=== PATIENT | male | born 1945 | race Caucasian/White ===

== ENCOUNTER 2019-03-19 13:50 | Emergency (ER) | payer MEDICARE ==
[2019-03-19 13:50] VITALS: BP 145/80
[2019-03-19] MEDS ORDERED: NS IV 1000 ML 1,000 ML IV SCH (14:14)
[2019-03-19 14:31] LABS: HEMATOCRIT 40 % (40-54); HEMOGLOBIN 13.5 G/DL (13.3-17.7); MEAN CORPUSCULAR HEMOGLOBIN 32 PG (25-34); MEAN CORPUSCULAR HGB CONC 33 G/DL (32-36); MEAN CORPUSCULAR VOLUME 96 FL (80-99); PLATELET COUNT 128 10^3/uL (130-400); RED CELL DISTRIBUTION WIDTH 12.3 % (10.0-14.5); WHITE BLOOD COUNT 5.3 10^3/uL (4.3-11.0)
[2019-03-19 14:32] LABS: BASOPHILS % (AUTO) 1 % (0-10); EOSINOPHILS # (AUTO) 0.1 10^3/uL (0.0-0.3); EOSINOPHILS % (AUTO) 1 % (0-10); LYMPHOCYTES # (AUTO) 1.9 X 10^3 (1.0-4.0); LYMPHOCYTES % (AUTO) 36 % (12-44); MEAN PLATELET VOLUME 10.6 FL (7.4-10.4); MONOCYTES # (AUTO) 0.5 X 10^3 (0.0-1.0); MONOCYTES % (AUTO) 9 % (0-12); NEUTROPHILS # (AUTO) 2.7 X 10^3 (1.8-7.8); NEUTROPHILS % (AUTO) 52 % (42-75)
[2019-03-19 14:34] LABS: INR 1.2 (0.8-1.4); PROTHROMBIN TIME PATIENT 15.3 SEC (12.2-14.7)
[2019-03-19 14:46] LABS: ALANINE AMINOTRANSFERASE 36 U/L (0-55); ALKALINE PHOSPHATASE 98 U/L (40-136); BILIRUBIN,TOTAL 0.4 MG/DL (0.1-1.0); BUN/CREATININE RATIO 20; CALCIUM 9.9 MG/DL (8.5-10.1); CARBON DIOXIDE 22 MMOL/L (21-32); CHLORIDE 102 MMOL/L (98-107); CREATININE SERUM 1.52 MG/DL (0.60-1.30); GFR ESTIMATED 45; GLUCOSE 214 MG/DL (70-105); POTASSIUM 4.4 MMOL/L (3.6-5.0); SODIUM 136 MMOL/L (135-145)
[2019-03-19 14:47] LABS: ALBUMIN 4.3 GM/DL (3.2-4.5); TOTAL PROTEIN 7.6 GM/DL (6.4-8.2)
--- NOTE | 2019-03-19 14:58 | Diagnostic Imaging Report ---
PROCEDURE: CT head without contrast. TECHNIQUE: Multiple contiguous axial images were obtained through the brain without the use of intravenous contrast. Auto Exposure Controls were utilized during the CT exam to meet ALARA standards for radiation dose reduction. INDICATION: Dizziness and chest pain. COMPARISON: No prior studies are available for comparison. FINDINGS: Ventricles and sulci are prominent consistent with cerebral atrophy. There is mild periventricular hypodensity noted consistent with chronic microvascular ischemia. No sulcal effacement or midline shift is detected. No acute intra-axial or extra-axial hemorrhage is detected. Cisterns are patent. IMPRESSION: Chronic changes. No acute intracranial process is detected. Dictated by: Dictated on workstation # [id number]
--- NOTE | 2019-03-19 14:58 | Diagnostic Imaging Report ---
INDICATION: Dizziness. Chest pain. COMPARISON: None. FINDINGS: Single frontal view of the chest demonstrates normal heart size and pulmonary vascularity. Evaluation of the lung orozco shows moderate basilar effusion. There is no large effusion on the left. No pneumothorax is seen on either side. The visualized osseous structures show no acute abnormalities. IMPRESSION: 1. Small left basilar effusion. Dictated by: Dictated on workstation # [id number]
[2019-03-19 15:36] LABS: BILIRUBIN,URINE NEGATIVE (NEGATIVE); CLARITY,URINE CLEAR; COLOR,URINE YELLOW; GLUCOSE, URINE (UA) TRACE (NEGATIVE); KETONES,URINE NEGATIVE (NEGATIVE); LEUKOCYTE ESTERASE ,URINE NEGATIVE (NEGATIVE); NITRITE,URINE NEGATIVE (NEGATIVE); PH,URINE 6.5 (5-9); PROTEIN,URINE NEGATIVE (NEGATIVE); SQUAMOUS EPITHELIAL CELL,UR 0-2 /HPF; UROBILINOGEN,URINE 0.2 MG/DL (NORMAL)
[2019-03-19 15:37] LABS: HYALINE CASTS, URINE 0-2 /LPF
--- NOTE | 2019-03-19 16:20 | ED Cardiac General ---
History of Present Illness General Chief Complaint: Chest Pain Stated Complaint: RT ARM PAIN; DIZZINESS; SHAKINESS History of Present Illness Date Seen by Provider: Mar 19, 2019 Time Seen by Provider: 14:00 Initial Comments The patient is a 73-year-old male with a history of hypertension, hyperlipidemia and diabetes. He presents with concern for acute onset of lightheadedness and shakiness and transient difficulty with speech articulation, all with onset about 30 minutes prior to arrival. Patient was outside sweeping his deck when he suddenly had onset of all of the above symptoms. He states he became very shaky and lightheadedness and felt like he would faint but did not. He was able to get inside the house and tried to talk to his but he states that he was stuttering and unable to get his words out. This persisted for just "a few minutes" before completely resolving. At this time the patient feels well and denies any symptoms of any kind. He similarly felt well before onset of symptoms. Contrary to the triage note, patient did not have any arm pain or chest pain. No associated fevers, nausea or vomiting, cold sweats or chills, shortness of breath, abdominal pain, flank pain, back pain, dysuria or hematuria, changes in bowel habits. Patient is alert and oriented 4 and pleasantly and appropriately interactive and in absolutely no distress upon initial evaluation in the emergency department. Vital signs are appropriate. Allergies and Home Medications Allergies Coded Allergies: No Known Drug Allergies (Unverified , 03/19/19) Patient Home Medication List Home Medication List Reviewed: Yes Review of Systems Review of Systems Constitutional: see HPI All Other Systems Reviewed Negative Unless Noted: Yes (Negative excepted noted.) Past Ulvrveo-Fqvsou-Ietwzv Hx Past Med/Social Hx: Reviewed Nursing Past Med/Soc Hx Patient Social History Alcohol Use: Denies Use Recreational Drug Use: Yes 2nd Hand Smoke Exposure: No Recent Hopitalizations: No Physical Abuse: No Sexual Abuse: No Mistreated: No Fear: No Seasonal Allergies Seasonal Allergies: No Past Medical History Surgeries: No Respiratory: No Cardiac: Yes Heart Murmur, High Cholesterol, Hypertension Neurological: No Genitourinary: No Gastrointestinal: No Musculoskeletal: No Endocrine: Yes Diabetes, Non-Insulin dep HEENT: No Cancer: No Psychosocial: No Integumentary: No Blood Disorders: No Adverse Reaction/Blood Tranf: No Family Medical History Reviewed Nursing Family Hx Physical Exam Vital Signs Capillary Refill : Height, Weight, BMI Height: '" Weight: lbs. oz. kg; BMI Method: General Appearance: No Apparent Distress Other comments This is an elderly male appearing nontoxic and in no acute distress. Head is normocephalic and atraumatic. Neck is supple and nontender. Oropharynx is moist. Lungs are clear to auscultation at all stations. There is a normal S1 and S2 without rubs or gallops and capillary refill is appropriate, less than 2 seconds globally. Abdomen is soft, nontender and nondistended. Skin is warm and dry without cyanosis, clubbing or edema. Psychiatrically, the patient doesn't straights appropriate mood and affect and is alert. From a neurologic standpoint, cranial nerves II through XII are intact and there are no lateralizing deficits noted. Speech is normal. Language is normal. Coordination is normal. There is no dysmetria with finger to nose bilaterally. Strength is 5 out of 5 at all joints of bilateral upper and lower extremity. Sensation is intact to light touch in bilateral upper and lower extremity. Patient ambulatory with a narrow, steady gait in the emergency department. He is alert and oriented 4. Progress/Results/Core Measures Results/Orders Lab Results Laboratory Tests Test 03/19/19 13:55 03/19/19 15:25 Range/Units White Blood Count 5.3 4.3-11.0 10^3/uL Red Blood Count 4.20 L 4.35-5.85 10^6/uL Hemoglobin 13.5 13.3-17.7 G/DL Hematocrit 40 40-54 % Mean Corpuscular Volume 96 80-99 FL Mean Corpuscular Hemoglobin 32 25-34 PG Mean Corpuscular Hemoglobin Concent 33 32-36 G/DL Red Cell Distribution Width 12.3 10.0-14.5 % Platelet Count 128 L 130-400 10^3/uL Mean Platelet Volume 10.6 H 7.4-10.4 FL Neutrophils (%) (Auto) 52 42-75 % Lymphocytes (%) (Auto) 36 12-44 % Monocytes (%) (Auto) 9 0-12 % Eosinophils (%) (Auto) 1 0-10 % Basophils (%) (Auto) 1 0-10 % Neutrophils # (Auto) 2.7 1.8-7.8 X 10^3 Lymphocytes # (Auto) 1.9 1.0-4.0 X 10^3 Monocytes # (Auto) 0.5 0.0-1.0 X 10^3 Eosinophils # (Auto) 0.1 0.0-0.3 10^3/uL Basophils # (Auto) 0.0 0.0-0.1 10^3/uL Prothrombin Time 15.3 H 12.2-14.7 SEC INR Comment 1.2 0.8-1.4 Activated Partial Thromboplast Time 27 24-35 SEC Sodium Level 136 135-145 MMOL/L Potassium Level 4.4 3.6-5.0 MMOL/L Chloride Level 102 98-107 MMOL/L Carbon Dioxide Level 22 21-32 MMOL/L Anion Gap 12 5-14 MMOL/L Blood Urea Nitrogen 31 H 7-18 MG/DL Creatinine 1.52 H 0.60-1.30 MG/DL Estimat Glomerular Filtration Rate 45 BUN/Creatinine Ratio 20 Glucose Level 214 H 70-105 MG/DL Calcium Level 9.9 8.5-10.1 MG/DL Corrected Calcium 9.7 8.5-10.1 MG/DL Total Bilirubin 0.4 0.1-1.0 MG/DL Aspartate Amino Transf (AST/SGOT) 31 5-34 U/L Alanine Aminotransferase (ALT/SGPT) 36 0-55 U/L Alkaline Phosphatase 98 40-136 U/L Troponin I < 0.30 <0.30 NG/ML Pro-B-Type Natriuretic Peptide 54.2 <75.0 PG/ML Total Protein 7.6 6.4-8.2 GM/DL Albumin 4.3 3.2-4.5 GM/DL Urine Color YELLOW Urine Clarity CLEAR Urine pH 6.5 5-9 Urine Specific [place] 1.010 L 1.016-1.022 Urine Protein NEGATIVE NEGATIVE Urine Glucose (UA) TRACE H NEGATIVE Urine Ketones NEGATIVE NEGATIVE Urine Nitrite NEGATIVE NEGATIVE Urine Bilirubin NEGATIVE NEGATIVE Urine Urobilinogen 0.2 NORMAL MG/DL Urine Leukocyte Esterase NEGATIVE NEGATIVE Urine RBC (Auto) NEGATIVE NEGATIVE Urine RBC NONE /HPF Urine WBC NONE /HPF Urine Squamous Epithelial Cells 0-2 /HPF Urine Crystals NONE /LPF Urine Bacteria NONE /HPF Urine Casts PRESENT /LPF Urine Hyaline Casts 0-2 H /LPF Urine Mucus NEGATIVE /LPF Urine Culture Indicated NO My Orders Orders - RASHID KAPADIA MD Cbc With Automated Diff (03/19/19 14:14) Comprehensive Metabolic Panel (03/19/19 14:14) Troponin I (03/19/19 14:14) Ekg Tracing (03/19/19 14:14) Chest 1 View Ap/Pa Only (03/19/19 14:14) Protime With Inr (03/19/19 14:14) Partial Thromboplastin Time (03/19/19 14:14) Probnp Fs (03/19/19 14:14) Ua Culture If Indicated (03/19/19 14:14) Ct Head Wo (03/19/19 14:14) Ed Iv/Invasive Line Start (03/19/19 14:14) Ns Iv 1000 Ml (Sodium Chloride 0.9%) (03/19/19 14:14) Progress Progress Note : Time: 16:18 Progress Note Clinical examination reassuring and neurologic examination nonfocal. Patient with transient, now resolved episode involving lightheadedness, shakiness and difficulty with speech articulation. May simply have been a presyncopal episode but with speech difficulty there is concern for a possible TIA as well. We'll check labs and EKG and chest x-ray and head CT and we'll then reevaluate. We'll give a liter of fluids. Patient will minimally be an admission for observation on telemetry, additional testing and further care or ED understands and agrees. Update: Workup unremarkable and reassuring aside from mild renal insufficiency of unclear chronicity. Patient continues to be at his mental status baseline and feels well. We will proceed with admission to [facility] at this time. Dr. Freire graciously accepts. Comment Sinus rhythm, no acute ST elevation or depression, right bundle-branch block, rate 93, if he interpretation. Diagnostic Imaging Comments CT ANGIO CHEST W PROCEDURE: CT angiography Chest. TECHNIQUE: After intravenous administration of contrast, thin section axial CT angiography of the chest was performed. 3D MIP reconstructions were made. All CT scans use one or more of the following dose optimizing techniques: automated exposure control, MA and/or KvP adjustment based on a patient size and exam type, or iterative reconstruction. INDICATION: Fever, cough, and congestion. COMPARISON: None available. FINDINGS: Vasculature: No pulmonary emboli. No CT evidence of pulmonary hypertension or right ventricular strain. Thoracic aorta is normal in caliber. No aortic dissection or pseudoaneurysm. Heart and mediastinum: Peripherally calcified right thyroid nodule measures 1.2 cm. No supraclavicular, axillary, or intra-thoracic lymphadenopathy. The heart is normal in size without pericardial effusion. Pleura: No pleural effusion or pneumothorax. Lungs and airway: No endoluminal lesion in the trachea or central bronchi. No pulmonary mass or consolidation. Scattered calcified pulmonary nodules are compatible with old granulomatous infection. Scattered centrilobular micronodules involve all five lobes and are indicative of a cellular bronchiolitis. Moderate centrilobular emphysema. Upper abdomen: Allowing for the phase of contrast, no acute abnormality in the upper abdomen is seen. Musculoskeletal: No concerning osseous lesion. IMPRESSION: 1. No pulmonary emboli or acute aortic syndrome. 2. Multifocal cellular bronchiolitis is most likely infectious in etiology. No pulmonary abscess or empyema. 3. Moderate emphysema. Dictated on workstation # [id number] CHEST 1 VIEW AP/PA ONLY INDICATION: Dizziness. Chest pain. COMPARISON: None. FINDINGS: Single frontal view of the chest demonstrates normal heart size and pulmonary vascularity. Evaluation of the lung orozco shows moderate basilar effusion. There is no large effusion on the left. No pneumothorax is seen on either side. The visualized osseous structures show no acute abnormalities. IMPRESSION: 1. Small left basilar effusion. Dictated on workstation # [id number] Departure Impression Primary Impression: Speech abnormality Additional Impression: Lightheadedness Disposition: ADMITTED INPATIENT Condition: Stable RASHID KAPADIA MD Mar 19, 2019 16:20
== END 2019-03-19 17:02 | disposition other institution (70) ==
LOC: ER FS 13:53
DX: R47.89 Other speech disturbances (principal); R42 Dizziness and giddiness; I10 Essential (primary) hypertension; E11.9 Type 2 diabetes mellitus without complications; E78.5 Hyperlipidemia, unspecified; E78.00 Pure hypercholesterolemia, unspecified
CPT/HCPCS: 36415; 70450; 71045; 80053; 81000; 83880; 84484; 85025; 85610; 85730; 93005

== ENCOUNTER 2020-01-14 07:41 | Emergency (ER) | payer MEDICARE ==
[~2020-01-14] VITALS: Ht 175.2 cm; Wt 76.5 kg
--- NOTE | 2020-01-14 07:47 | NUR ---
Patient arrival to ED assisted to registration with , patient sits down on a wheelchair nearby. reported, "Hands are cold". Pt states, "Arms been feeling funny for awhile." Pt is moving al extremities. Pt seems to be off balance with his gait and states he is dizzy. Pt states, "I have been dizzy and those pills they gave me I won't take." Pt's had been asked to go to car to wait and we obtained her cell phone number. Pt brought via to ED 4. Pt is questioned for triage and begins to laugh and continues to state "ask my ". Pt is unable to give height, name of Dr, name of pharmacy, past medical/surgical hx, and does not give further hx than repeating self about his hands.
--- OUTSIDE RECORDS SUMMARY | 2020-01-14 07:49 | XMS REPORT | Continuity of Care Document ---
Author Organization Unknown Address Unknown Phone Unavailable Allergies Active Description Code Type Severity Reaction Onset Reported/Identified Relationship to Patient Clinical Status Yes No Known Drug Allergies [id number] Drug Allergy Unknown N/A 03/19/2019 Medications There is no data. Problems Date Dx Coded Attending Type Code Diagnosis Diagnosed By 03/19/2019 RASHID KAPADIA MD, Ot E11. 9 TYPE 2 DIABETES MELLITUS WITHOUT COMPLIC 03/19/2019 RASHID KAPADIA MD, Ot E78. 00 PURE HYPERCHOLESTEROLEMIA, UNSPECIFIED 03/19/2019 RASHID KAPADIA MD, Ot E78. 5 HYPERLIPIDEMIA, UNSPECIFIED 03/19/2019 RASHID KAPADIA MD, Ot I10 ESSENTIAL (PRIMARY) HYPERTENSION 03/19/2019 RASHID KAPADIA MD, Ot R42 DIZZINESS AND GIDDINESS 03/19/2019 RASHID KAPADIA MD, Ot R47. 89 OTHER SPEECH DISTURBANCES Procedures There is no data. Results Test Result Range CBC - 11/22/18 08:50 WHITE BLOOD CELL COUNT 5.0 Thousand/uL 3 .8-10.8 RED BLOOD CELL COUNT 4.50 Million/uL 4.2 0-5.80 HEMOGLOBIN 14.5 g/dL 13.2-17.1 HEMATOCRIT 42.0 % 38.5-50.0 MCV 93.3 fL 80.0-100.0 MCH 32.2 pg 27.0-33.0 MCHC 34.5 g/dL 32.0-36.0 RDW 12.3 % 11.0-15.0 PLATELET COUNT 165 Thousand/uL 140-400 MPV 10.5 fL 7.5-12.5 ABSOLUTE NEUTROPHILS 2815 cells/uL 1500- 7800 ABSOLUTE LYMPHOCYTES 1540 cells/uL 850-3 900 ABSOLUTE MONOCYTES 465 cells/uL 200-950 ABSOLUTE EOSINOPHILS 130 cells/uL 15-500 ABSOLUTE BASOPHILS 50 cells/uL 0-200 NEUTROPHILS 56.3 % NRG LYMPHOCYTES 30.8 % NRG MONOCYTES 9.3 % NRG EOSINOPHILS 2.6 % NRG BASOPHILS 1.0 % NRG CMP - 12/18/18 17:00 GLUCOSE 111 mg/dL 65-99 UREA NITROGEN (BUN) 29 mg/dL 7-25 CREATININE 1.60 mg/dL 0.70-1.18 eGFR NON-AFR. [place] 42 mL/min/1.73m2 > OR = 60 eGFR 49 mL/min/1.73m2 > OR = 60 BUN/CREATININE RATIO 18 (calc) 6-22 SODIUM 137 mmol/L 135-146 POTASSIUM 4.7 mmol/L 3.5-5.3 CHLORIDE 103 mmol/L 98-110 CARBON DIOXIDE 24 mmol/L 20-32 CALCIUM 9.8 mg/dL 8.6-10.3 PROTEIN, TOTAL 7.7 g/dL 6.1-8.1 ALBUMIN 4.5 g/dL 3.6-5.1 GLOBULIN 3.2 g/dL (calc) 1.9-3.7 ALBUMIN/GLOBULIN RATIO 1.4 (calc) 1.0-2. 5 BILIRUBIN, TOTAL 0.5 mg/dL 0.2-1.2 ALKALINE PHOSPHATASE 80 U/L 40-115 AST 33 U/L 10-35 ALT 42 U/L 9-46 CBC - 12/18/18 17:00 WHITE BLOOD CELL COUNT 6.0 Thousand/uL 3 .8-10.8 RED BLOOD CELL COUNT 4.65 Million/uL 4.2 0-5.80 HEMOGLOBIN 14.6 g/dL 13.2-17.1 HEMATOCRIT 43.6 % 38.5-50.0 MCV 93.8 fL 80.0-100.0 MCH 31.4 pg 27.0-33.0 MCHC 33.5 g/dL 32.0-36.0 RDW 12.2 % 11.0-15.0 PLATELET COUNT 169 Thousand/uL 140-400 MPV 10.4 fL 7.5-12.5 ABSOLUTE NEUTROPHILS 2664 cells/uL 1500- 7800 ABSOLUTE LYMPHOCYTES 2400 cells/uL 850-3 900 ABSOLUTE MONOCYTES 678 cells/uL 200-950 ABSOLUTE EOSINOPHILS 210 cells/uL 15-500 ABSOLUTE BASOPHILS 48 cells/uL 0-200 NEUTROPHILS 44.4 % NRG LYMPHOCYTES 40.0 % NRG MONOCYTES 11.3 % NRG EOSINOPHILS 3.5 % NRG BASOPHILS 0.8 % NRG Complete blood count (CBC) with automate d white blood cell (WBC) differential - 03/19/19 13:55 Blood leukocytes automated count (number/volume) 5.3 10*3/uL 4.3-11.0 Blood erythrocytes automated count (number/volume) 4.20 10*6/uL 4.35-5.85 Venous blood hemoglobin measurement (mass/volume) 13.5 g/dL 13.3-17.7 Blood hematocrit (volume fraction) 40 % 40-54 Automated erythrocyte mean corpuscular volume 96 [ foz_us] 80-99 Automated erythrocyte mean corpuscular h emoglobin (mass per erythrocyte) 32 pg 25-34 Automated erythrocyte mean corpuscular h emoglobin concentration measurement (mass/volume) 33 g/dL 32-36 Automated erythrocyte distribution width ratio 12. 3 % 10.0- 14.5 Automated blood platelet count (count/volume) 128 10*3/uL 130-400 Automated blood platelet mean volume measurement 10.6 [foz_us] 7.4-10.4 Automated blood neutrophils/100 leukocytes 52 % 42-75 Automated blood lymphocytes/100 leukocytes 36 % 12-44 Blood monocytes/100 leukocytes 9 % 0-12 Automated blood eosinophils/100 leukocytes 1 % 0-10 Automated blood basophils/100 leukocytes 1 % 0-10 Blood neutrophils automated count (number/volume) 2.7 10*3 1.8-7.8 Blood lymphocytes automated count (number/volume) 1.9 10*3 1.0-4.0 Blood monocytes automated count (number/volume) 0. 5 10*3 0.0-1.0 Automated eosinophil count 0.1 10*3/uL 0 .0-0.3 Automated blood basophil count (count/volume) 0.0 10*3/uL 0.0-0.1 PT panel in platelet poor plasma by coag ulation assay - 03/19/19 13:55 Prothrombin time (PT) in platelet poor plasma by coagu lation assay 15.3 s 12.2-14.7 INR in platelet poor plasma or blood by coagulation as say 1.2 0.8-1.4 Activated partial thromboplastin time (a PTT) in platelet poor plasma bycoagulation assay - 03/19/19 13:55 Activated partial thromboplastin time (a PTT) in platelet poor plasma bycoagulation assay 27 s 24-35 Comprehensive metabolic panel - 03/19/19 13:55 Serum or plasma sodium measurement (moles/volume) 136 mmol/L 135-145 Serum or plasma potassium measurement (moles/volume) 4.4 mmol/L 3.6-5.0 Serum or plasma chloride measurement (moles/volume) 102 mmol/L 98-107 Carbon dioxide 22 mmol/L 21-32 Serum or plasma anion gap determination (moles/volume) 12 mmol/L 5-14 Serum or plasma urea nitrogen measurement (mass/volume ) 31 mg/dL 7-18 Serum or plasma creatinine measurement (mass/volume) 1.52 mg/dL 0.60-1.30 Serum or plasma urea nitrogen/creatinine mass ratio 20 NRG Serum or plasma creatinine measurement w ith calculation of estimated glomerular filtration rate 45 NRG Serum or plasma glucose measurement (mass/volume) 214 mg/dL 70-105 Serum or plasma calcium measurement (mass/volume) 9.9 mg/dL 8.5-10.1 Serum or plasma total bilirubin measurement (mass/volu me) 0.4 mg/dL 0.1-1.0 Serum or plasma alkaline phosphatase zion surement (enzymatic activity/volume) 98 U/L 40-136 Serum or plasma aspartate aminotransfera se measurement (enzymatic activity/volume) 31 U/L 5-34 Serum or plasma alanine aminotransferase measurement (enzymatic activity/volume) 36 U/L 0-55 Serum or plasma protein measurement (mass/volume) 7.6 g/dL 6.4-8.2 Serum or plasma albumin measurement (mass/volume) 4.3 g/dL 3.2-4.5 CALCIUM CORRECTED 9.7 mg/dL 8.5-10.1 Serum or plasma troponin i.cardiac measu rement (mass/volume) - 03/19/19 13:55 Serum or plasma troponin i.cardiac measurement (mass/v olume) < ng/mL <0.30 PROBNP FS - 03/19/19 13:55 PROBNP FS 54.2 pg/mL <75.0 Complete urinalysis with reflex to cultu re - 03/19/19 15:25 Urine color determination YELLOW NRG Urine clarity determination CLEAR NR G Urine pH measurement by test strip 6.5 5-9 Specific gravity of urine by test strip 1.010 1.016-1.022 Urine protein assay by test strip, semi-quantitative NEGATIVE NEGATIVE Urine glucose detection by automated test strip TR MIKAL NEGATIVE Erythrocytes detection in urine sediment by light micr oscopy NEGATIVE NEGATIVE Urine ketones detection by automated test strip NE GATIVE NEGATIVE Urine nitrite detection by test strip NEGATIVE NEGATIVE Urine total bilirubin detection by test strip NEGA TIVE NEGATIVE Urine urobilinogen measurement by automated test strip (mass/volume) 0.2 mg/dL NORMAL Urine leukocyte esterase detection by dipstick NEG ATIVE NEGATIVE Automated urine sediment erythrocyte cou nt by microscopy (number/high power field) NONE NRG Automated urine sediment leukocyte count by microscopy (number/high power field) NONE NRG Bacteria detection in urine sediment by light microsco py NONE NRG Squamous epithelial cells detection in u rine sediment by light microscopy 0-2 NRG Crystals detection in urine sediment by light microsco py NONE NRG Casts detection in urine sediment by light microscopy PRESENT NRG Mucus detection in urine sediment by light microscopy NEGATIVE NRG Complete urinalysis with reflex to culture NO NRG Hyaline casts detection in urine sediment by light candace roscopy 0-2 NRG LIPID PANEL - 05/17/19 12:57 CHOLESTEROL, TOTAL 221 mg/dL <200 HDL CHOLESTEROL 45 mg/dL >40 TRIGLYCERIDES 302 mg/dL <150 LDL-CHOLESTEROL 133 mg/dL (calc) NRG CHOL/HDLC RATIO 4.9 (calc) <5.0 NON HDL CHOLESTEROL 176 mg/dL (calc) <13 0 MICROALBUMIN/CREATININE RATIO, URINE - 1 07/17/18 12:57 CREATININE, RANDOM URINE 213 mg/dL 20-32 0 MICROALBUMIN 5.0 mg/dL See Note: MICROALBUMIN/CREATININE RATIO, RANDOM URINE 23 mcg /mg creat <30 Encounters ACCT No. Visit Date/Time Discharge Status Pt. Type Provider Facility Loc./Unit Complaint [id number] 02/16/2019 08:20:00 02/16/2019 23:59: 59 CLS Outpatient AQUILINO SANTOS [facility] [id number] 05/17/2019 11:45:00 Document Registration [id number] 12/18/2018 16:30:00 Document Registration [id number] 11/22/2018 08:40:00 Document Registration [id number] 06/07/2019 15:33:00 019 23:59:59 CLS Preadmit AQUILINO SANTOS MD [facility] [id number] 03/19/2019 13:53:00 019 17:00:00 DIS Emergency STEFFI WELLS, RASHID Kaur [facility] ER FS RT ARM PAIN; DIZZINESS; SHAKINESS
--- OUTSIDE RECORDS SUMMARY | 2020-01-14 07:49 | XMS REPORT ---
Author Author Elias SANTOS Organization [facility] Address [address] [address] Care Team Providers Care Office Manager Executive Assistant Name Role Phone AQUILINO SANTOS Unavailable PROBLEMS Type Condition ICD9-CM Code [id number] Code Onset Dates Condition S tatus SNOMED Code Problem Other chronic pain G89.29 Active 8 1402470 Problem Plantar fasciitis of left foot M72.2 Active [id number] Problem FDC current use of insulin Z79.4 Active [id number] Problem Type 2 diabetes mellitus without complications E11 .9 Active [id number] ALLERGIES No Known Allergies ENCOUNTERS Encounter Location Date Diagnosis [facility] [address] [place] [address] [phone] 9 Aug, [facility] [address] [place], [place] [id number] [place] [address] [phone] 9 May, [place] [address] [place] [phone] 9 May, Type 2 diabetes mellitus without complications E11.9 ; intermediate manager current use of insulin Z79.4 ; Heart murmur R01.1 ; Lipid screening Z13.220 and Thyroid disorder screening Z13.29 [place] [address] [place] [address] Apr, Type 2 diabetes mellitus wit hout complications E11.9 [place] [address] [place], [place] [id number] [place] [address] [phone] 9 Apr, Type 2 diabetes mellitus without complications E11.9 [place] [address] [place], [place] [id number] [place] [phone] 9 Feb, [place] [address] [place] [id number] [address] 9 Feb, Plantar fasciitis of left foot M72.2 and Type 2 diabetes mellitus without complications E11.9 [place] [address] [place], [place] [id number] [place] [phone] 9 Jan, Type 2 diabetes mellitus without complications E11.9 ; Pain in left shoulder M25.512 and Other chronic pain G89.29 [facility] [address] [address] [place] [address] Nov, Dizziness R42 ; Nausea R11.0 and Weakness R53.1 [place] [address] [place] [address] [phone] 9 October, [place] [address] [place] [address] [phone] 9 October, Type 2 diabetes mellitus without complications E11.9 [place] [address] [place] [address] [phone] 9 Sep, Acute prostatitis N41.0 [place] [address] [place] [address] [phone] 9 Aug, Malaise R53.81 ; Urination pain R30.9 and Acute prostatitis N41.0 [place] [address] [place] [address] [phone] 9 Jul, [place] [address] [place] [address] [phone] 9 Jun, Type 2 diabetes mellitus without complications E11.9 and intermediate manager current use of insulin Z79.4 [place] [address] [place] [address] [phone] 9 Jun, [place] [address] [place] [address] [phone] 9 Jun, [place] [address] [place] [address] [phone] 9 Jun, IMMUNIZATIONS No Known Immunizations SOCIAL HISTORY Never Assessed REASON FOR VISIT Med f/u. Has been trialing glimeperide for the last month. DAVID Ovalle, has bee n feeling under the weather for about 3 weeks. PLAN OF CARE Activity Details Follow Up 3 Months Reason: VITAL SIGNS Height 66 in 2018-08-31 Weight 181.4 lbs 2018-08-31 Temperature 98.9 degrees Fahrenheit 2018-08-31 Heart Rate 72 bpm 2018-08-31 Respiratory Rate 16 2018-08-31 BMI 29.28 kg/m2 2018-08-31 Blood pressure systolic 146 mmHg 2018-08-31 Blood pressure diastolic 74 mmHg 2018-08-31 MEDICATIONS Medication Instructions Dosage Frequency Start Date End Date Duration S chase Gómez SoloStar 100 UNIT/ML subcutaneously at bedtime 26 units Jun, 90 days Active Simvastatin 20 MG Orally Once a day 1 tablet in the evening 24h 30 day(s) Active Cipro 500 MG Orally every 12 hrs 1 tablet 12h Aug, 1 4 days Active Glimepiride 4 mg Orally Once a day 1 tablet with breakf ast or the first main meal of the day 24h Jul, 90 days Active Lisinopril 10 MG Orally Once a day 1 tablet 24h 30 d ay(s) Active RESULTS Name Result Date Reference Range UA LONG DIP (IN HOUSE) Lot # [id number] Exp date 02/27/2019 Clarity yellow Color clear Odor na GLU neg ALLEGRA neg KET neg SG 1.015 BLO neg pH 8.5 Protein trace URO 0.2 NIT neg EMERITA neg Lot # Exp date PROCEDURES Procedure Date Ordered Result Body Site URINALYSIS, AUTO, W/O SCOPE August 31, 2018 INSTRUCTIONS MEDICATIONS ADMINISTERED No Known Medications MEDICAL (GENERAL) HISTORY Type Description Date Medical History Diabetes mellitus Medical History hypertension Medical History hyperlipidemia Surgical History eye surgery
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
--- NOTE | 2020-01-14 08:02 | ED General ---
General Stated Complaint: DIZZINESS, HAND FEEL COLD History of Present Illness Date Seen by Provider: Jan 14, 2020 Time Seen by Provider: 08:02 Initial Comments 74-year-old male presents with vague complaint. Patient states that his "hand feels cold" very difficult to get an exact understand what he is trying to describe. Patient will state that both his arms and legs "hurt" but cannot describe it to me. Patient possibly [place]. He does have a recent prescription for meclizine. Patient does not describe any focal weakness. Patient does seem to have some underlying dementia. The nurse did got discussed with the and were also unable to gather any further information. Allergies and Home Medications Allergies Coded Allergies: No Known Drug Allergies (Unverified , 03/19/19) Patient Home Medication List Home Medication List Reviewed: Yes Review of Systems Review of Systems Constitutional: see HPI; No chills, No fever EENTM: no symptoms reported Respiratory: No cough Cardiovascular: No chest pain, No palpitations Gastrointestinal: No abdominal pain, No constipation, No diarrhea, No nausea, No vomiting Genitourinary: no symptoms reported Musculoskeletal: see HPI, muscle pain Past Kcigbps-Bfhgkk-Ypmmwh Hx Patient Social History 2nd Hand Smoke Exposure: No Recent Hopitalizations: No Seasonal Allergies Seasonal Allergies: No Past Medical History Surgeries: No Respiratory: No Cardiac: Yes Heart Murmur, High Cholesterol, Hypertension Neurological: No Genitourinary: No Gastrointestinal: No Musculoskeletal: No Endocrine: Yes Diabetes, Non-Insulin dep HEENT: No Cancer: No Psychosocial: No Integumentary: No Blood Disorders: No Adverse Reaction/Blood Tranf: No Physical Exam Vital Signs Vital Signs - First Documented 01/14/20 07:47 Temp 36.2 Pulse 74 Resp 20 B/P (MAP) 152/75 (100) Pulse Ox 97 O2 Delivery Room Air Capillary Refill : Height, Weight, BMI Height: '" Weight: lbs. oz. 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 II-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 Norm as Tested Skin: Normal Color, Warm/Dry Lymphatic: No Adenopathy Focused Exam Lactate Level 01/14/20 08:15: Lactic Acid Level 3.09*H Lactic Acid Level Laboratory Tests Test 01/14/20 08:15 Lactic Acid Level 3.09 MMOL/L (0.50-2.00) *H Progress/Results/Core Measures Suspected Sepsis SIRS Temperature: Pulse: Respiratory Rate: Laboratory Tests 01/14/20 08:15: White Blood Count 4.5 Blood Pressure / Mean: 01/14/20 08:15: Lactic Acid Level 3.09*H Laboratory Tests 01/14/20 08:15: Creatinine 1.57H, Platelet Count 151, Total Bilirubin 0.3 Results/Orders Lab Results Laboratory Tests Test 01/14/20 08:15 01/14/20 08:45 Range/Units White Blood Count 4.5 4.3-11.0 10^3/uL Red Blood Count 3.98 L 4.35-5.85 10^6/uL Hemoglobin 12.6 L 13.3-17.7 G/DL Hematocrit 38 L 40-54 % Mean Corpuscular Volume 96 80-99 FL Mean Corpuscular Hemoglobin 32 25-34 PG Mean Corpuscular Hemoglobin Concent 33 32-36 G/DL Red Cell Distribution Width 11.9 10.0-14.5 % Platelet Count 151 130-400 10^3/uL Mean Platelet Volume 10.8 H 7.4-10.4 FL Neutrophils (%) (Auto) 59 42-75 % Lymphocytes (%) (Auto) 27 12-44 % Monocytes (%) (Auto) 9 0-12 % Eosinophils (%) (Auto) 4 0-10 % Basophils (%) (Auto) 1 0-10 % Neutrophils # (Auto) 2.7 1.8-7.8 X 10^3 Lymphocytes # (Auto) 1.2 1.0-4.0 X 10^3 Monocytes # (Auto) 0.4 0.0-1.0 X 10^3 Eosinophils # (Auto) 0.2 0.0-0.3 10^3/uL Basophils # (Auto) 0.0 0.0-0.1 10^3/uL Sodium Level 137 135-145 MMOL/L Potassium Level 4.1 3.6-5.0 MMOL/L Chloride Level 97 L 98-107 MMOL/L Carbon Dioxide Level 26 21-32 MMOL/L Anion Gap 14 5-14 MMOL/L Blood Urea Nitrogen 26 H 7-18 MG/DL Creatinine 1.57 H 0.60-1.30 MG/DL Estimat Glomerular Filtration Rate 43 BUN/Creatinine Ratio 17 Glucose Level 266 H 70-105 MG/DL Lactic Acid Level 3.09 *H 0.50-2.00 MMOL/L Calcium Level 10.4 H 8.5-10.1 MG/DL Corrected Calcium 10.5 H 8.5-10.1 MG/DL Total Bilirubin 0.3 0.1-1.0 MG/DL Aspartate Amino Transf (AST/SGOT) 30 5-34 U/L Alanine Aminotransferase (ALT/SGPT) 32 0-55 U/L Alkaline Phosphatase 78 40-136 U/L Total Protein 6.9 6.4-8.2 GM/DL Albumin 3.9 3.2-4.5 GM/DL Urine Color YELLOW Urine Clarity CLEAR Urine pH 7.5 5-9 Urine Specific [place] 1.010 L 1.016-1.022 Urine Protein NEGATIVE NEGATIVE Urine Glucose (UA) 3+ H NEGATIVE Urine Ketones NEGATIVE NEGATIVE Urine Nitrite NEGATIVE NEGATIVE Urine Bilirubin NEGATIVE NEGATIVE Urine Urobilinogen 0.2 < = 1.0 MG/DL Urine Leukocyte Esterase NEGATIVE NEGATIVE Urine RBC (Auto) NEGATIVE NEGATIVE Urine RBC NONE /HPF Urine WBC 0-2 /HPF Urine Squamous Epithelial Cells 0-2 /HPF Urine Crystals NONE /LPF Urine Bacteria NEGATIVE /HPF Urine Casts NONE /LPF Urine Mucus SMALL H /LPF Urine Culture Indicated NO My Orders Orders - MERCADO,ARMAAN L DO Cbc With Automated Diff (01/14/20 08:04) Comprehensive Metabolic Panel (01/14/20 08:04) Lactic Acid Analyzer (01/14/20 08:04) Ua Culture If Indicated (01/14/20 08:04) Ct Head Wo-R/O Stroke (01/14/20 08:04) Creatine Kinase (01/14/20 08:36) Ed Iv/Invasive Line Start (01/14/20 09:06) Ns Iv 1000 Ml (Sodium Chloride 0.9%) (01/14/20 09:06) Vital Signs/I&O 01/14/20 07:47 Temp 36.2 Pulse 74 Resp 20 B/P (MAP) 152/75 (100) Pulse Ox 97 O2 Delivery Room Air Capillary Refill : Progress Note : Time: 09:00 Progress Note Chart review shows that this is a long-term/long-standing dizziness. Patient became angry and states that this is the third time he is been evaluated for this and all the tests to been the same. Patient still very vague on his symptoms. I do believe he has some underlying dementia and would benefit from some further outpatient care. Patient reports that they are moving back to [place] soon. The nurse walked the patient out to the car and will be visiting with the about further dementia workup. Patient is mildly unstable when he walks but otherwise no other findings. Patient leaving AMA. Patient left AMA the last time he was here in 2019 also Diagnostic Imaging Diagonstic Imaging: CT Plain Films/CT/US/NM/MRI: chest Comments [facility] [place] NAME: [facility]OP [facility] REC#: [id number] PT STATUS: REG ER : 1945 PHYSICIAN: ARMAAN MERCADO DO ADMIT DATE: 01/14/20/ER FS Draft Date of Exam:01/14/20 CT HEAD WO-R/O STROKE PROCEDURE: CT head wo r/o stroke. TECHNIQUE: Multiple contiguous axial images were obtained through the brain without the use of intravenous contrast. Auto Exposure Controls were utilized during the CT exam to meet ALARA standards for radiation dose reduction. INDICATION: Dizziness. Correlation is made with prior head CT from 03/19/2019. Ventricles and sulci are prominent consistent with cerebral atrophy. Moderate periventricular hypodensity is noted consistent with chronic microvascular ischemia. No sulcal effacement or midline shift is identified. No acute intra-axial or extra-axial hemorrhage is detected. The cisterns are patent. The visualized paranasal sinuses are clear. IMPRESSION: Chronic changes. No acute intracranial process is detected. Reviewed: Reviewed Night Hawk Study, Reviewed by Me Departure Impression Primary Impression: Dizziness Disposition: AGAINST MEDICAL ADVICE Condition: Stable Departure-Patient Inst. Referrals: NO,LOCAL PHYSICIAN (PCP/Family) Primary Care Physician ARMAAN MERCADO DO Jan 14, 2020 08:02
--- NOTE | 2020-01-14 08:44 | Diagnostic Imaging Report ---
PROCEDURE: CT head wo r/o stroke. TECHNIQUE: Multiple contiguous axial images were obtained through the brain without the use of intravenous contrast. Auto Exposure Controls were utilized during the CT exam to meet ALARA standards for radiation dose reduction. INDICATION: Dizziness. Correlation is made with prior head CT from 03/19/2019. Ventricles and sulci are prominent consistent with cerebral atrophy. Moderate periventricular hypodensity is noted consistent with chronic microvascular ischemia. No sulcal effacement or midline shift is identified. No acute intra-axial or extra-axial hemorrhage is detected. The cisterns are patent. The visualized paranasal sinuses are clear. IMPRESSION: Chronic changes. No acute intracranial process is detected. Dictated by: Dictated on workstation # [id number]
--- NOTE | 2020-01-14 08:53 | NUR ---
Pt states next month they are going back home to [place]. Pt states they own a home here and up there. Pt remains sitting up at side of bed and refusing to lie on cart.
[2020-01-14 08:54] LABS: BASOPHILS % (AUTO) 1 % (0-10); EOSINOPHILS # (AUTO) 0.2 10^3/uL (0.0-0.3); EOSINOPHILS % (AUTO) 4 % (0-10); HEMATOCRIT 38 % (40-54); HEMOGLOBIN 12.6 G/DL (13.3-17.7); LYMPHOCYTES # (AUTO) 1.2 X 10^3 (1.0-4.0); LYMPHOCYTES % (AUTO) 27 % (12-44); MEAN CORPUSCULAR HEMOGLOBIN 32 PG (25-34); MEAN CORPUSCULAR HGB CONC 33 G/DL (32-36); MEAN CORPUSCULAR VOLUME 96 FL (80-99); MEAN PLATELET VOLUME 10.8 FL (7.4-10.4); MONOCYTES # (AUTO) 0.4 X 10^3 (0.0-1.0); MONOCYTES % (AUTO) 9 % (0-12); NEUTROPHILS # (AUTO) 2.7 X 10^3 (1.8-7.8); NEUTROPHILS % (AUTO) 59 % (42-75); PLATELET COUNT 151 10^3/uL (130-400); RED CELL DISTRIBUTION WIDTH 11.9 % (10.0-14.5); WHITE BLOOD COUNT 4.5 10^3/uL (4.3-11.0)
[2020-01-14 08:59] LABS: BILIRUBIN,TOTAL 0.3 MG/DL (0.1-1.0); CALCIUM 10.4 MG/DL (8.5-10.1); CREATININE SERUM 1.57 MG/DL (0.60-1.30); POTASSIUM 4.1 MMOL/L (3.6-5.0)
[2020-01-14 09:00] LABS: ALBUMIN 3.9 GM/DL (3.2-4.5); TOTAL PROTEIN 6.9 GM/DL (6.4-8.2)
[2020-01-14] MEDS ORDERED: NS IV 1000 ML 1,000 ML IV SCH (09:06)
--- NOTE | 2020-01-14 09:16 | NUR ---
Scanned IV fluids NS and proceed to hang when patient clarly realized he was going to be staying longer as IV fluids going to be started. Pt withdraws arm from nurse and becomes very agitated and raises voice. Pt verbalizes his is outside waiting and he is leaving and is not going to be told nothing is wrong again. The patient was educated that the can be updated again by RN and she can even leave and go home and we can call her to come back when he is done. Pt avoids a direct eye contact as RN is explaining that Dr is not done with your work up and the current test results reveal IV fluids are required to "fix" an abnormal lab test. Dr will be explaining this to you.
[2020-01-14 09:19] LABS: BACTERIA,URINE NEGATIVE /HPF; BILIRUBIN,URINE NEGATIVE (NEGATIVE); CLARITY,URINE CLEAR; COLOR,URINE YELLOW; GLUCOSE, URINE (UA) 3+ (NEGATIVE); KETONES,URINE NEGATIVE (NEGATIVE); LEUKOCYTE ESTERASE ,URINE NEGATIVE (NEGATIVE); NITRITE,URINE NEGATIVE (NEGATIVE); PH,URINE 7.5 (5-9); PROTEIN,URINE NEGATIVE (NEGATIVE); SQUAMOUS EPITHELIAL CELL,UR 0-2 /HPF; WBC,URINE 0-2 /HPF
[2020-01-14 09:25] VITALS: BP 144/73
--- NOTE | 2020-01-14 09:29 | NUR ---
Pt agitated standing in corner playing with NIBP monitor and refused IV fluids or further waiting for recommended testing or appropriate stabilization. Pt states he has had blood drawn 3 times now and will not take a result of unknown cause again. Pt begins pointing to places on arms to display blood draw. Pt notified he has not been in [facility] ER since Feb 2019. Explained again the Dr is not completed his entire work up and his IV fluids ordered are for correcting abnormal lab values. Pt does not repeat what was said to him to confirm understanding. Pt states again, "I am tired of being here for like 4 hrs and not having anything wrong with me." Pt plays with SL cap and wants this removed. Dr. Juarez was consulted and patient seems to have limited comprehension of the continued work up being planned and pt stands to begin leaving. SL dc'd. AMA and refusal further tx form signed. Copy of head CT report acquired to produce for pt and will discuss with outside. Walked patient with steady gait to car and pt asks if they are out of gas. 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 was explained his work up is not finished, his labs reveal a need for hydration and continued work up. Explained he is not repeating what is said to him and clearly appears to not understand. The discussion of the need for him to have a physician managing his care regularly not just a Urgent Care clinic visit prn. was given CT report for their copy. Dr Juarez would recommend there be a work up on his memory for possible dementia symptoms being displayed in addition he needs a work up or referral for the neurological symptoms of dementia. The pt describes this is his 3rd visit with no answer for dizziness and unable to do things at times as hands not working. became tearful and pointed finger to nurse confirming she has understood the content of his ER visit as he displays cognitive impairment. Note patient becomes more agitated but does not initiate conversation about his departure from ER.
[2020-01-14] MEDS ORDERED: METF-397 (11:42)
[2020-01-14] MEDS ORDERED: GLIM1TAB4 (11:42)
[2020-01-14] MEDS ORDERED: MECL-149 (11:42)
[2020-01-14] MEDS ORDERED: ONDA4TAB11 (11:42)
== END 2020-01-14 09:29 | disposition left against medical advice (07) ==
LOC: EDUNIT# 07:41 → ER FS 07:43
DX: R42 Dizziness and giddiness (principal)
CPT/HCPCS: 36415; 70450; 80053; 81000; 82550; 83605; 85025